=== PATIENT | male | born 1990 | race Caucasian/White ===

== ENCOUNTER 2020-03-07 07:44 | Observation (INO) | payer BC, OTHER, MEDICAID, SELFPAY ==
[2020-03-07] VITALS (8 sets, daily range): BP systolic 108–170; BP diastolic 58–91; PULSE 66–125; RESP 14–24; TEMP 36.6–37.2; O2SAT 95–100
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
[2020-03-07 08:34] LABS: Add Manual Diff / Slide Review NO; Basophils Absolute Auto 0 /uL (0-100); Basophils Percent Auto 0.2 % (0-2); Eosinophils Absolute Auto 0 /uL (0-450); Eosinophils Percent Auto 0.1 % (2-4); Hematocrit 45.4 % (41-53); Hemoglobin 16.3 g/dL (13.5-17.5); Lymphocytes Absolute Auto 1400 /uL (1100-4500); Lymphocytes Percent Auto 12.9 % (25-40); Mean Corpuscular Hemoglobin 32.6 PG (26-34); Mean Corpuscular Volume 90.6 fL (80-100); Monocytes Absolute Auto 500 /uL (0-900); Neutrophils Absolute Auto 8800 /uL (1500-7000); Neutrophils Percent Auto 81.8 % (50-75); Platelet Count 294 X10^3/uL (150-400); Red Blood Cell Count 5.01 X10^6/uL (4.5-5.9); Red Cell Distribution Width 12.1 % (11.6-14.8); White Blood Cell Count 10.8 X10^3/uL (4.5-11.0)
--- NOTE | 2020-03-07 08:50 | PC.NURSE ---
Nani on watch. Introduced to Pt. He is currently calm and quite lying on stretcher.
[2020-03-07 08:54] LABS: Ethanol (ETOH) < 10 mg/dL; Lipase 128 U/L (23-300); Salicylate < 1.0 mg/dL (<20)
[2020-03-07 08:55] LABS: Acetaminophen < 10 ug/mL (10-30); Alanine Aminotransferase 29 IU/L (<50); Albumin 5.1 g/dL (3.5-5.0); Albumin Globulin Ratio 1.4 (1.0-2.8); Alkaline Phosphatase 58 U/L (38-126); Aspartate Aminotransferase 35 IU/L (17-59); BUN Creatinine Ratio 20.4 (6-22); Bilirubin Total 0.9 mg/dL (0.2-1.3); Blood Urea Nitrogen 20 mg/dL (9-20); Calcium 10.4 mg/dL (8.4-10.2); Carbon Dioxide 30 mmol/L (22-32); Chloride 97 mmol/L (98-107); Estimated Glomerular Filt Rate > 60.0 mL/min (>60); Globulin 3.6 g/dL (1.7-4.1); Glucose 112 mg/dL (70-100); HEMOLYSIS < 15 (0-50); Potassium 3.7 mmol/L (3.4-5.1); Sodium 138 mmol/L (137-145); Total Protein 8.7 g/dL (6.3-8.2)
--- NOTE | 2020-03-07 09:00 | PC.NURSE ---
Pt talking to self laughing and smiling.
[2020-03-07] MEDS: SODIUM CHLORIDE 0.9% 1,000 ML 1000 ML IV (09:04)
[2020-03-07] MEDS: LIDOCAINE 1% W/EPI 1 ML SUBCUT (09:04)
--- NOTE | 2020-03-07 09:14 | PC.NURSE ---
Updated Lala WADSWORTH on patient, potential needs.
[2020-03-07] MEDS: BACITRACIN OINT 0.9 GM PCKT 5 APPLIC TOP (09:25)
[2020-03-07 09:26] LABS: Thyroid Stimulating Hormone 1.28 uIU/mL (0.47-4.68)
[2020-03-07] MEDS: TET,DIPH,PERTUSS(ACELL),VAC/PF 0.5 ML SYRINGE IM (09:26)
[2020-03-07] MEDS: HYDROGEN PEROXIDE 473 ML SOLUTION 60 ML TOP (09:28)
--- NOTE | 2020-03-07 09:34 | PC.NURSE ---
Nurse in cleaning up Pt. wounds.
--- NOTE | 2020-03-07 09:49 | PC.NURSE ---
Nurse cleaning Pt wounds
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
--- NOTE | 2020-03-07 10:04 | PC.NURSE ---
Pt wounds cleaned of both forearms and neck using saline and hydrogen peroxide, pt tolerated cleaning well. Pt updated on plan of care, surgeon at bedside for consult.
[2020-03-07 10:30] LABS: UR Morphine/Opiate cutoff 300 Negative (Negative); Ur Creatinine Normal (Normal); Ur Specific Gravity Normal (Normal); Urine Amphetamines Negative (Negative); Urine Barbiturates Negative (Negative); Urine Benzodiazepines Negative (Negative); Urine Cocaine Negative (Negative); Urine MDMA Negative (Negative); Urine Methadone Negative (Negative); Urine Methamphetamines Negative (Negative); Urine Oxycodone Negative (Negative); Urine Phencyclidine Negative (Negative); Urine Tetrahydrocannabinol Negative (Negative); Urine Tricyclic Antidepressant Negative (Negative); Urine pH Normal (Normal)
--- NOTE | 2020-03-07 10:30 | PC.NURSE ---
Pt still actively staring into distance talking to self and laughing
--- NOTE | 2020-03-07 10:37 | PC.NURSE ---
Pt climbed out of bed seems confused and is requesting water. Dr Inman notified. Pt back in bed. water provided. Nurse is currently dressing wounds
--- NOTE | 2020-03-07 10:42 | PC.NURSE ---
Pt got up from stretcher and walked around room, pt HR noted to increase up to 150 bpm, ED provider Dr. Inman made aware, pt assisted back to stretcher and HR down to 125, pt denies any CP, SOB, N/V, feeling dizzy/lightheaded. RT called and at bedside performing 12 lead ECG.
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
--- NOTE | 2020-03-07 11:06 | PC.NURSE ---
head of it getting Water for Pt. Pt was calm then Fled during. Hospital Notification sent out. Police notified
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
--- NOTE | 2020-03-07 11:12 | PC.NURSE ---
Pt has been returned via EMS and [employer]. Relocated i Rm 13
--- NOTE | 2020-03-07 11:19 | PC.NURSE ---
Pt IV site remains in place, dressing with coban and 4x4 noted over both forearms, no bleeding noted to superficial lacerations to neck, no new additional wounds noted throughout.
--- NOTE | 2020-03-07 11:27 | PC.NURSE ---
in rm providing sutures. Pt requesting water. Ok'd by
--- NOTE | 2020-03-07 11:45 | PC.NURSE ---
Dr ochoa providing sutures
--- NOTE | 2020-03-07 12:06 | PC.NURSE ---
Nurse in rm cleaning and dressing Pt wounds
--- NOTE | 2020-03-07 12:35 | PC.NURSE ---
Pt wounds cleaned with saline with bacitracin applied with telfa and 4x4 and coban. Pt tolerated wound care well. Pt assisted to restroom with patient process safety specialist, will continue to monitor.
[2020-03-07] MEDS: risperiDONE 1 MG TABLET PO (12:41)
--- NOTE | 2020-03-07 13:47 | PC.NURSE ---
Pt eyes closed,resting quietly, chest rising and falling
--- NOTE | 2020-03-07 14:16 | PC.NURSE ---
Pt sleeping chest rising and falling
--- NOTE | 2020-03-07 14:45 | PC.NURSE ---
Pt sleeping eyes open, chest rising and falling
--- NOTE | 2020-03-07 15:01 | PC.NURSE ---
sleeping eyes open chest rising and falling
--- NOTE | 2020-03-07 15:03 | PC.NURSE ---
Pt resting comfortably with his eyes closed at this time, VS deferred to allow pt rest. Pt skin P/W/D, equal rise and fall of his chest, respirations even/nonlabored. Pt plant safety engineer at bedside, will continue to monitor.
[2020-03-07 15:58] LABS: Appearance Urine UA CLEAR; Bilirubin Urine UA NEGATIVE (NEGATIVE); Color Urine UA YELLOW; Glucose Urine UA NEGATIVE (Negative); Ketones Urine UA NEGATIVE (NEGATIVE); Leukocyte Esterase Urine UA NEGATIVE (NEGATIVE); Nitrite Urine UA NEGATIVE (Negative); Occult Blood Urine UA NEGATIVE (Negative); Protein Urine UA NEGATIVE (Negative); Specific Gravity Urine UA <=1.005 (1.000-1.035); Urobilinogen Urine UA 0.2 E.U./dL (0.2)
[2020-03-07 16:10] LABS: Bacteria Urine Few (2-10); Culture Indicated Urine Cult Not Indicated; RBC Urine 0-1/HPF (0-5/HPF); Squamous Epithelial Cell Urine 1-5 /HPF (0-5/HPF); WBC Urine 0-1/HPF (0-5/HPF)
--- NOTE | 2020-03-07 16:38 | PC.NURSE ---
Discussed cardiac monitoring order with Dr. Mckeon and states to discontinue cardiac monitoring due to safety risk and to continuously assess patient VS. Pt currently resting quietly on stretcher with patient product safety consultant at bedside for monitoring.
--- NOTE | 2020-03-07 19:45 | PC.NURSE ---
CONTRACT MANAGER/SIGN MANUFACTURER Note: Pt. resting comfortably. Pt. has equal rise and fall of his chest, respirations even/nonlabored. Will continue to monitor.
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
--- NOTE | 2020-03-07 21:10 | PC.NURSE ---
Patient laying in bed, eyes closed. Vital signs taken, asked patient if he needed to use the bathroom and he said, No, not now. Encouraged patient to tell staff when he needed to use the bathroom and he said, [place].
--- NOTE | 2020-03-08 00:31 | PC.NURSE ---
03/08/2020 @ 0030 Patient turned over on stretcher.
--- NOTE | 2020-03-08 01:46 | PC.NURSE ---
03/08/2020 0145 Patient turned over to left side on stretcher. Patient back to sleep
--- NOTE | 2020-03-08 03:32 | PC.NURSE ---
03/08/2020 @ 0330 Patient turned onto right side. sleeping
--- NOTE | 2020-03-08 04:47 | PC.NURSE ---
03/08/2020 @ 0447 Patient sat up on stretcher and laid back down.
[2020-03-08 05:00] VITALS: BP 123/65; PULSE 76; RESP 18; TEMP 37.3; O2SAT 98
--- NOTE | 2020-03-08 05:25 | PC.NURSE ---
RN and DIESEL SERVICE JOURNEYMAN in room to take VS and assess pt, pt up out of bed with steady gait to urinate. Pt abdominal BS present with no new bleeding noted to abdominal wounds, CMS and cap refill persent to bi lat upper extremities with dressings in place. Pt given juice.
--- NOTE | 2020-03-08 05:45 | PC.NURSE ---
03/08/2020 @ 0515 Patient up to the BR. Back to bed. Snack and Hydration offered to Patient.
--- NOTE | 2020-03-08 07:08 | PC.NURSE ---
[place] walls on watch @ 0700. Pt sleeping
--- NOTE | 2020-03-08 07:16 | P.PN_ITS ---
Subjective Subjective Date Patient Seen: 03/08/20 Time Patient Seen: 07:16 Interval history: No acute events over night. Pt denies abdominal pain, nausea, subjective fevers. Exam Vital Signs (past 8 hours): - 03/08/20 05:00 Temperature 99.2 F Pulse Rate 76 Respiratory Rate 18 Blood Pressure 123/65 Pulse Oximetry 98 Oxygen Delivery Method Room Air Oxygen Flow Rate 0 Narrative Exam Narrative: GENERAL: Sleeping but arousable. Appears stated age. Vital signs noted. HENT: Normocephalic, atraumatic. Hearing intact. Oral mucosa is pink and moist. Dry crusted shallow lacerations on right and anterior neck 1-2cm. EYES: Conjunctiva pink, sclera white, no periorbital swelling. CARDIOVASCULAR: Regular rate. No pedal edema. RESPIRATORY: Non-tachypneic, breathing comfortably on room air. GASTROINTESTINAL: Abdomen soft and non-distended; no tenderness to palpation; multiple small stab incisions on the abdominal wall overlying and lateral to the rectus muscles bilaterally; 1cm lacerations with dried blood present. GENITALURINARY: No flank tenderness. Extremities: dressing in place and clean; Equal tone and mass bilaterally. SKIN: Warm, dry, soft, appropriate color for ethnicity. No other lesions, rashes, or wounds. NEURO: Oriented to self and situation. No gross sensory deficits. PSYCH: Odd affect, upbeat mood Objective Labs Result Diagrams: 03/07/20 08:14 03/07/20 08:14 Labs: Laboratory Results - last 24 hr 03/07/20 03/07/20 03/07/20 08:14 08:14 08:14 WBC 10.8 RBC 5.01 Hgb 16.3 Hct 45.4 MCV 90.6 MCH 32.6 MCHC 36.0 RDW 12.1 Plt Count 294 Neut % (Auto) 81.8 H Lymph % (Auto) 12.9 L [place] % (Auto) 5.0 Eos % (Auto) 0.1 L Baso % (Auto) 0.2 Neut # (Auto) 8800 H Lymph # (Auto) 1400 [place] # (Auto) 500 Eos # (Auto) 0 Baso # (Auto) 0 Sodium 138 Potassium 3.7 Chloride 97 L Carbon Dioxide 30 BUN 20 Creatinine 0.98 Estimated GFR > 60.0 BUN/Creatinine Ratio 20.4 Glucose 112 H Calcium 10.4 H Total Bilirubin 0.9 AST 35 ALT 29 Alkaline Phosphatase 58 Total Protein 8.7 H Albumin 5.1 H Globulin 3.6 Albumin/Globulin Ratio 1.4 Lipase 128 TSH Urine Color Urine Appearance Urine pH Ur Specific [place] Urine Protein Urine Glucose (UA) Urine Ketones Urine Occult Blood Urine Nitrate Urine Bilirubin Urine Urobilinogen Ur Leukocyte Esterase Urine RBC Urine WBC Ur Squamous Epith Cells Urine Bacteria Ur Culture Indicated? Salicylates < 1.0 U Opiates 300ng/mL cut Ur Oxycodone Screen Urine Methadone Screen Acetaminophen < 10 L Ur Barbiturates Screen U Tricyclic Antidepress Ur Phencyclidine Scrn Ur Amphetamines Screen U Methamphetamines Scrn Ur MDMA Scrn (Ecstasy) U Benzodiazepines Scrn Urine Cocaine Screen U Marijuana (THC) Screen Ethyl Alcohol 03/07/20 03/07/20 03/07/20 08:14 08:14 10:04 WBC RBC Hgb Hct MCV MCH MCHC RDW Plt Count Neut % (Auto) Lymph % (Auto) [place] % (Auto) Eos % (Auto) Baso % (Auto) Neut # (Auto) Lymph # (Auto) [place] # (Auto) Eos # (Auto) Baso # (Auto) Sodium Potassium Chloride Carbon Dioxide BUN Creatinine Estimated GFR BUN/Creatinine Ratio Glucose Calcium Total Bilirubin AST ALT Alkaline Phosphatase Total Protein Albumin Globulin Albumin/Globulin Ratio Lipase TSH 1.28 Urine Color Urine Appearance Urine pH Ur Specific [place] Urine Protein Urine Glucose (UA) Urine Ketones Urine Occult Blood Urine Nitrate Urine Bilirubin Urine Urobilinogen Ur Leukocyte Esterase Urine RBC Urine WBC Ur Squamous Epith Cells Urine Bacteria Ur Culture Indicated? Salicylates U Opiates 300ng/mL cut Negative Ur Oxycodone Screen Negative Urine Methadone Screen Negative Acetaminophen Ur Barbiturates Screen Negative U Tricyclic Antidepress Negative Ur Phencyclidine Scrn Negative Ur Amphetamines Screen Negative U Methamphetamines Scrn Negative Ur MDMA Scrn (Ecstasy) Negative U Benzodiazepines Scrn Negative Urine Cocaine Screen Negative U Marijuana (THC) Screen Negative Ethyl Alcohol < 10 03/07/20 10:04 WBC RBC Hgb Hct MCV MCH MCHC RDW Plt Count Neut % (Auto) Lymph % (Auto) [place] % (Auto) Eos % (Auto) Baso % (Auto) Neut # (Auto) Lymph # (Auto) [place] # (Auto) Eos # (Auto) Baso # (Auto) Sodium Potassium Chloride Carbon Dioxide BUN Creatinine Estimated GFR BUN/Creatinine Ratio Glucose Calcium Total Bilirubin AST ALT Alkaline Phosphatase Total Protein Albumin Globulin Albumin/Globulin Ratio Lipase TSH Urine Color Yellow Urine Appearance Clear Urine pH 7.0 Ur Specific [place] <=1.005 Urine Protein Negative Urine Glucose (UA) Negative Urine Ketones Negative Urine Occult Blood Negative Urine Nitrate Negative Urine Bilirubin Negative Urine Urobilinogen 0.2 Ur Leukocyte Esterase Negative Urine RBC 0-1/hpf Urine WBC 0-1/hpf Ur Squamous Epith Cells 1-5 /hpf Urine Bacteria Few (2-10) H Ur Culture Indicated? Cult not indicated Salicylates U Opiates 300ng/mL cut Ur Oxycodone Screen Urine Methadone Screen Acetaminophen Ur Barbiturates Screen U Tricyclic Antidepress Ur Phencyclidine Scrn Ur Amphetamines Screen U Methamphetamines Scrn Ur MDMA Scrn (Ecstasy) U Benzodiazepines Scrn Urine Cocaine Screen U Marijuana (THC) Screen Ethyl Alcohol Assessment & Plan Assessment and plan (1) Stab wound of abdomen: Qualifiers: Encounter type: initial encounter Qualified Code(s): S31.119A - Laceration without foreign body of abdominal wall, unspecified quadrant without penetration into peritoneal cavity, initial encounter Status: Acute Assessment & Plan narrative: This is a 29-year-old man with self-inflicted stab wounds to the anterior abdomen. He was admitted for observation and serial abdominal exams. Exams last night and this morning reveal no tenderness, no signs of peritonitis, no distension, no nausea, no fevers. He is tolerating PO. Recommendations: Regular diet Continue observation until the 24 hour gal is reached. As long as he continues to have a benign exam without pain or nausea, he may be discharged as deemed appropriate by the hospitalist and ER physician for the patient's psychiatric care. Wound care to bilateral arms per ER physician No general surgery follow up required as long as he continues to remain asy mptomatic Return precautions: patient should return immediately to the ER if he develops nausea, vomiting, abdominal pain, or fever Time Spent With Patient Time with patient: 15-24 minutes
[2020-03-08 08:36] VITALS: BP 118/59; PULSE 77; RESP 14; O2SAT 99
--- NOTE | 2020-03-08 09:30 | PC.NURSE ---
Pt reseting,wakes to voice,answering questions. pt ate breakfast,brought in water and AM meds.
[2020-03-08] MEDS: ENOXAPARIN 40 MG/0.4 ML SYRINGE SUBCUT (09:38)
[2020-03-08] MEDS: risperiDONE 1 MG TABLET PO (09:39)
[2020-03-08] MEDS: ACETAMINOPHEN 325 MG TABLET 650 MG PO (09:47)
--- NOTE | 2020-03-08 11:00 | PC.NURSE ---
Pt resting, eyes closed, chest rising and falling
--- NOTE | 2020-03-08 11:05 | P.PN_ITS ---
Subjective Subjective Date Patient Seen: 03/08/20 Interval history: Mark Moore IV is a 29-year-old male with a past medical history significant for schizophrenia/schizoaffective disorder who presented to the ED after being found covered in blood while sitting in his car and possible suicide attempt. Patient is sleeping comfortably in bed and arousable. The patient denies suic idal ideation, suicide intent, or homicidal ideation. He reports that his cuts were to perform scar tattooing. He reports a history of schizophrenia or bipolar with schizoaffective disorder that he thinks is due to previous drug use versus self medication to treat those conditions. He reports that he was on his medication that he renewed recently but had been off them for several months previous to renewing them. He denies auditory or visual hallucinations. He denies headache, chest pain, shortness of breath, abdominal pain, nausea, vomiting, fever, chills, dysuria, diarrhea constipation. He endorses mild dull pain when the bandages are removed from his arms. He denies pain in his abd omen. He is voiding without difficulty. He has not had a bowel movement since admission. He is ambulating without difficulty. Patient has been medically cleared, DCR has been notified and waiting arrival. Exam Vital Signs (past 8 hours): - 03/08/20 05:00 03/08/20 08:36 Temperature 99.2 F Pulse Rate 76 77 Respiratory Rate 18 14 Blood Pressure 123/65 Blood Pressure [Right Arm] 118/59 L Pulse Oximetry 98 99 Oxygen Delivery Method Room Air Oxygen Flow Rate 0 Narrative Exam Narrative: General: Young gentleman sleeping in bed and in no acute distress, well- developed, well-nourished, flat affect and withdrawn otherwise appropriately interactive. HEENT: Normocephalic, atraumatic. External ears without defect. Pupils equal, round, and reactive to light and accommodation. Anicteric sclerae, moist conjunctivae, and no lid lag. Oropharynx free of erythema and cobble stoning with moist mucosa. Neck: Supple with full range of motion. No jugular venous distension. No bruits. No lymphadenopathy or thyromegaly. Cardiovascular: Regular rate and rhythm without murmurs, rubs, or gallops appr eciated Pulmonary: Clear to auscultation bilaterally without crackles, wheezes, or rhonchi. Normal respiratory effort with no use of accessory muscles. Abdomen: Soft, bowel sounds present, nontender, nondistended. Several small lacerations healing without surrounding erythema or edema. No hepato splenomegaly or masses appreciated. Extremities: No clubbing, cyanosis, or edema. Bilateral upper extremities wrapped in dressings with Keon bandages. Skin: Normal temperature, turgor, and texture; no rash, ulcers, or subcutaneous nodules appreciated. Tattoos across chest and back. Neurological: Cranial nerves grossly intact. Normal muscle strength, tone, and bulk. Reflexes, coordination, and sensory function within normal limits. No known gait impairment. Psychiatric: Flat affect and withdrawn. Mildly somnolent. Appears to be alert oriented x3. Denies auditory or visual hallucinations. Denies suicidal or homicidal ideations. Cooperative. Objective Labs Result Diagrams: 03/07/20 08:14 03/07/20 08:14 Labs: Laboratory Results - last 24 hr 03/07/20 10:04 Urine Color Yellow Urine Appearance Clear Urine pH 7.0 Ur Specific [place] <=1.005 Urine Protein Negative Urine Glucose (UA) Negative Urine Ketones Negative Urine Occult Blood Negative Urine Nitrate Negative Urine Bilirubin Negative Urine Urobilinogen 0.2 Ur Leukocyte Esterase Negative Urine RBC 0-1/hpf Urine WBC 0-1/hpf Ur Squamous Epith Cells 1-5 /hpf Urine Bacteria Few (2-10) H Ur Culture Indicated? Cult not indicated Assessment & Plan Assessment & Plan narrative: Mark Moore IV is a 29-year-old male with a past medical history significant for schizophrenia/schizoaffective disorder who presented to the ED after being found covered in blood while sitting in his car and possible suicide attempt. 1. Possible suicide attempt with multiple self-inflicted upper extremity and abdominal lacerations, present on admission. Resolved. -Patient presented to ED after being found covered in blood in his car with multiple abrasions on the forearms and possible suicide attempt. Patient repo rts that he was performing scar tattooing. He denies suicide attempt or suicidal ideations. He denies homicidal ideations. Patient received numerous sutures of bilateral forms by ED provider. Patient at time of admission attempted to elope and self-inflicted several small lacerations with small knife to his abdomen. -CT the abdomen and pelvis with contrast demonstrated small lacerations evident involving the right and left anterolateral abdominal wall without evidence of peritoneal cavity involvement, solid organ injury or definite hollow viscus perforation. Noted distended, intact urinary bladder, likely secondary to fluid administration. -Consulted general surgery, Dr. Hollis, who recommended serial abdominal exams and monitoring for infection initially and has now cleared the patient medically. We appreciate her time and recommendations. -Patient is currently detained in a seclusion unlocked room for greater than 24 hours and has not had any aggressive behavior. Patient has been medically cleared and await DCR evaluation for involuntary psychiatric admission. 2. Schizophrenia/schizoaffective disorder, chronic, present on admission. Stable. -Continue home risperidone 1 mg in the morning and 2 mg daily at bedtime and divalproex 500 mg twice daily. Code status: Full code Restraint [id number] Restraint [id number] Evaluation [id number] #1: Date: 03/08/20 Time: 11:10 Patient Appearance: Unkempt and Disheveled Level of Consciousness: Drowsy Speech Pattern: Coherent, Soft-Spoken and Spontaneous Speech Mood Description: Flat and Withdrawn Ability to Follow Directions: Fair Hallucination Type: None Thought Process: Disorganized and Illogical Respirations: Normal respiratory rate Cardiac: Regular Rate Circulation: Moves all extremities Behavior necessitating restraint: Attempt to self harm Restraint Risks: Damaged tissue Restraint risks explained to patient: Yes Restraint risks explained to family: No Patient's response to restraint use: Verbalizes understanding
[2020-03-08 11:21] VITALS: BP 106/55; PULSE 71; RESP 17; O2SAT 98
--- NOTE | 2020-03-08 11:30 | PC.NURSE ---
Shower offered, Pt declined for now, would like his belongings. Pt informed that DCR will be speaking with him today, Pt. stated he would decide about shower after that.
--- NOTE | 2020-03-08 12:58 | PC.NURSE ---
Pt resting comfortably on stretcher with Patient Petroleum Refinery Operator at bedside. Airway patent, respirations even/nonlabored, skin pink warm and dry. Will continue to monitor.
--- NOTE | 2020-03-08 14:00 | PC.NURSE ---
[facility] in [place] visiting with Pt
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
--- NOTE | 2020-03-08 14:15 | PM.CHAP ---
Pleasant pastoral care visit. Pt. understood that he was waiting for mental health assessment, but expressed desire for discharge. When asked about whether he had a safe place to go, Pt. mentioned his car but doesn't know where it is. Pt. uncertain about contacting his mother when I asked if there was anyone who should know that he is safe. Am willing to make contact with Ramón at [facility], [phone], if a motel voucher is appropriate at discharge. Franklin Willard [facility] [phone]
[2020-03-08 16:04] VITALS: BP 130/58; PULSE 61; RESP 16; TEMP 37.1; O2SAT 98
--- NOTE | 2020-03-08 16:24 | PC.NURSE ---
03/08/20 1625- Patient in bed with eyes closed with even and unlabored respirations. Patient arouses easily. No complaints of pain or discomfort. Patient pleasent, calm, and cooperative at this time. Safety measurses in place. 1:1 supervision continues.
[2020-03-08 17:25] VITALS: BMI 23.7
[2020-03-08 20:00] VITALS: BP 125/60; PULSE 62; RESP 16; TEMP 37; O2SAT 98
[2020-03-08 20:46] LABS: COVID19 -Nasal RAPID Negative (Negative)
--- NOTE | 2020-03-08 21:51 | PC.NURSE ---
03/08/202- Changed dressings to both arms. Patient tolerated without issue. safety measures in place. will continue to monitor.
[2020-03-08] MEDS: DIVALPROEX DR 250 MG TABLET 500 MG PO (23:02)
[2020-03-08] MEDS: risperiDONE 1 MG TABLET 2 MG PO (23:02)
[2020-03-08] MEDS: BACITRACIN OINT 0.9 GM PCKT 3 APPLIC TOP (23:03)
--- NOTE | 2020-03-08 23:27 | PC.NURSE ---
03/08/2020 2327- Patient left via BLS transport to [facility]. Report called to recieving RN at [facility]. Patient left with all personal belongins from ER and from Acute care safe. Patient left with BLS at 2327.
--- NOTE | 2020-03-22 10:57 | PC.NURSE ---
pt showed up on ED tracker,pt removed
== END 2020-03-08 23:27 | disposition other institution (70) | DRG 750 ==
LOC: ED 11:58 → AC 13:12
PROVIDERS: Emergency Medicine; Admitting Provider Internal Medicine; Emergency Provider Internal Medicine; Referring Provider Emergency Medicine; Visit Provider Internal Medicine
DX: F25.9 Schizoaffective disorder, unspecified (principal); S41.111A Laceration without foreign body of right upper arm, initial encounter; S41.112A Laceration without foreign body of left upper arm, initial encounter; S10.91XA Abrasion of unspecified part of neck, initial encounter; S31.119A Laceration without foreign body of abdominal wall, unspecified quadrant without penetration into peritoneal cavity, initial encounter; T14.91XA Suicide attempt, initial encounter; F17.210 Nicotine dependence, cigarettes, uncomplicated; Z23 Encounter for immunization; Z11.59 Encounter for screening for other viral diseases
CPT/HCPCS: 36415; 74177; 80053; 80305; 80320; 80329; 81001; 83690; 84443; 85025; 87635; 90471; 93005; 96360; 96361; 99285; G0378; 90715; G0480; J1650; Q9967